=== PATIENT | male | born 1975 | race African-American/Black ===

== ENCOUNTER 2025-06-03 05:14 | Emergency (ER) | payer SELFPAY ==
[~2025-06-03] VITALS: Ht 170.2 cm; Wt 118.0 kg
--- NOTE | 2025-06-03 05:59 | DVH ---
CHEST RADIOGRAPH INDICATION: chest pain TECHNIQUE: Single frontal view of the chest was obtained COMPARISON: None FINDINGS: Lines and Tubes: None Lungs: No focal consolidation. Pleura: No effusion. No pneumothorax. Cardiomediastinal contours: Unremarkable Bones: No acute osseous abnormality. IMPRESSION: 1. No acute cardiopulmonary disease.
[2025-06-03 06:05] LABS: Hematocrit 41.9 % (41.0-53.0); Hemoglobin 14.1 g/dL (13.5-17.5); Mean Corpuscular Hemoglobin 28.4 pg (28.0-32.0); Mean Corpuscular Volume 84.4 fL (80.0-100.0); Nucleated Red Blood Cells % 0.1 %
[2025-06-03 06:19] LABS: Albumin 4.3 g/dL (3.2-4.8); Alkaline Phosphatase 87 U/L (46-116); Anion Gap 11 (5-15); BUN/Creatinine Ratio 7.8 (10.0-20.0); Bilirubin, Total 0.8 mg/dL (0.2-1.0); Blood Urea Nitrogen 10 mg/dL (9-23); Calcium 8.8 mg/dL (8.7-10.4); Carbon Dioxide 23 mmol/L (20-31); Chloride 101 mmol/L (98-107); Total Protein 6.9 g/dL (5.7-8.2)
[2025-06-03 06:20] LABS: Alanine Aminotransferase 47 U/L (7-40); Potassium 3.4 mmol/L (3.5-5.1); Sodium 135 mmol/L (136-145)
[2025-06-03 06:22] LABS: INR 1.51 (0.9-1.15); Partial Thromboplastin Time 28.3 SEC (24.5-34.5); Prothrombin Time 15.4 sec (9.3-11.8)
[2025-06-03 06:24] LABS: Glucose 432 mg/dL (74-106)
--- NOTE | 2025-06-03 07:01 | ECG ---
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
--- NOTE | 2025-06-03 07:11 | ECG ---
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
--- NOTE | 2025-06-03 07:18 | ED.PDOC ---
HPI Comments 50 yr M w/ type 2 diabetes (diagnosed in 2018), clinical depression, anxiety disorder, and sleep apnea presents for evaluation of chest pain. The chest pain began earlier while going to the bathroom and was described as a pressure and squeezing sensation in the center of the chest, similar to heartburn, and associated with recent consumption of white rice and water. The pain was initially severe enough that the patient considered calling an ambulance and was accompanied by left arm pain. The patient currently reports mild persistent chest pain rated as 2 out of 10, with mild left arm discomfort, but no current shortness of breath or abdominal pain. Earlier, the patient did experience shortness of breath. The patient has a history of similar chest pain in the past, with an ER visit in 2022 where it was attributed to the esophagus rather than the heart. The patient takes metformin 1000 mg twice daily, Jardiance 25 mg daily, and Lantus 24 units at bedtime for diabetes, but has recently missed doses. The patient also takes sertraline, diphenhydramine, and prazosin (for nightmares). Chief Complaint: Chest Pain Time Seen by MD: 06:45 Reviewed Notes: Nurses Notes, Medications, Allergies Allergies: Coded Allergies: NO KNOWN ALLERGIES (Unverified , 03/31/10) Home Meds Active Scripts Ibuprofen (Ibuprofen) 600 Mg Tab, 1 TAB PO Q8HP PRN for 14 Days, #42 TAB 0 Refills Prov:LIDYADILLON NP 06/03/25 Information Source: Patient Mode of Arrival: EMS Severity: Moderate Past Medical History PAST MEDICAL HISTORY: Anxiety, Depression, DM, High Lipids Surgical History: Denies all surgeries Family History Family History: Reviewed,noncontributory to illness, Unknown Social History Smoker: Non-Smoker Alcohol: Denies ETOH Use Drugs: Denies Drug Use Lives In: Home Constitutional: denies: chills, diaphoresis, fatigue, fever, malaise, sweats, weakness, others EENTM: denies: blurred vision, double vision, ear bleeding, ear discharge, ear drainage, ear pain, ear ringing, eye pain, eye redness, hearing loss, mouth pain, mouth swelling, nasal discharge, nose bleeding, nose congestion, nose pain, photophobia, tearing, throat pain, throat swelling, voice changes, others Respiratory: denies: cough, hemoptysis, orthopnea, SOB at rest, shortness of breath, SOB with excertion, stridor, wheezing, others Cardiovascular: reports: chest pain; denies: dizzy spells, diaphoresis, Dyspnea on exertion, edema, irregular heart beat, left arm pain, lightheadedness, palpitations, PND, syncope, others Gastrointestinal: denies: abdomen distended, abdominal pain, blood streaked bowels, constipated, diarrhea, dysphagia, difficulty swallowing, hematemesis, melena, nausea, poor appetite, poor fluid intake, rectal bleeding, rectal pain, vomiting, others Genitourinary: denies: burning, dysuria, flank pain, frequency, hematuria, incontinence, penile discharge, penile sore, pain, testicle pain, testicle swelling, urgency, others Neurological: denies: dizziness, fainting, headache, left sided numbness, left sided weakness, numbness, paresthesia, pre-existing deficit, right sided numbness, right sided weakness, seizure, speech problems, tingling, tremors, weakness, others Musculoskeletal: denies: back pain, gout, joint pain, joint swelling, muscle pain, muscle stiffness, neck pain, others Integumetry: denies: bruises, change in color, change in hair/nails, dryness, laceration, lesions, lumps, rash, wounds, others Allergic/Immunocompromised: denies: Difficulty Healing, Frequent Infections, Hives, Itching, others Hematologic/Lymphatic: denies: anemia, blood clots, easy bleeding, easy bruising, swollen glands, others Endocrine: denies: excessive hunger, excessive sweating, excessive thirst, excessive urination, flushing, intolerance to cold, intolerance to heat, unexplained weight gain, unexplained weight loss, others Psychiatric: denies: anxiety, bipolar disorder, depression, hopeless, panic disorder, schizophrenia, sleepless, suicidal, others All Other Systems: Reviewed and Negative Physical Exam Exam Comments Reproducible chest pain to palpation to the left chest wall General Appearance: No Apparent Distress, Normal HEENT: Normal ENT Inspection, Pharynx Normal, TMs Normal Neck: Full Range of Motion, Non-Tender, Normal, Normal Inspection Respiratory: Chest Non-Tender, Lungs Clear, No Accessory Muscle Use, No Respiratory Distress, Normal Breath Sounds Cardiovascular: No Edema, No JVD, No Murmur, No Gallop, Normal Peripheral Pulses, Regular Rate/Rhythm Breast Exam: Deferred Gastrointestinal: No Organomegaly, Non Tender, No Pulsatile Mass, Normal Bowel Sounds, Soft Genitalia: Deferred Pelvic: Deferred Rectal: Deferred Extremities: No calf tenderness, Normal capillary refill, Normal inspection, Normal range of motion, Non-tender, No pedal edema Musculoskeletal : Apperance: Normal Neurologic: Alert, manager purchasing II-XII nml as Tested, No Motor Deficits, Normal Affect, Normal Mood, No Sensory Deficits Cerebellar Function: Normal Reflexes: Normal Skin: Dry, Normal Color, Warm Lymphatic: No Adenopathy EKG EKG : Pulse Rate (adult): 94 [place]: Normal Cardiac Rhythm: NSR Block: None Hypertrophy: None ST: Normal Was a procedure done? Was a procedure done?: No CP Differential Dx Differential Diagnosis: Other X-Ray, Labs, Meds, VS Vital Signs Date Time Temp Pulse Resp B/P (MAP) Pulse Ox O2 Delivery O2 Flow Rate FiO2 06/03/25 09:30 97.9 79 14 110/68 (82) 96 97.9 06/03/25 09:07 78 06/03/25 08:43 97.9 06/03/25 07:35 98.1 06/03/25 07:18 94 06/03/25 07:08 70 06/03/25 07:07 84 16 98 Room Air 06/03/25 07:07 97.6 84 16 105/63 (77) 98 97.6 06/03/25 05:30 98.6 105 16 108/60 98 98.6 06/03/25 05:14 94 Lab Test 06/03/25 08:50 06/03/25 07:00 06/03/25 06:42 06/03/25 05:44 Range/Units Troponin I High Sensitivity < 3 L < 3 L < 3 L </=54 ng/L Urine Color Light-yellow Yellow Urine Clarity Clear Clear Urine pH 5.5 5.0-9.0 Urine Specific [place] 1.039 H 1.001-1.035 Urine Protein Negative Negative Urine Ketones Negative Negative Urine Blood Negative Negative /uL Urine Nitrite Negative Negative Urine Bilirubin Negative Negative Urine Urobilinogen Normal Negative mg/dL Urine Leukocyte Esterase Negative Negative /uL Urine RBC None seen 0 - 3 /hpf Urine Microscopic WBC 0-3 /HPF Urine Squamous Epithelial Cells None seen <5 /hpf Urine Bacteria None seen None Seen /hpf Urine Glucose 4+ H Normal mg/dL White Blood Count 3.1 L 4.4-10.8 10^3/uL Red Blood Count 4.96 4.5-5.90 10^6/uL Hemoglobin 14.1 13.5-17.5 g/dL Hematocrit 41.9 41.0-53.0 % Mean Corpuscular Volume 84.4 80.0-100.0 fL Mean Corpuscular Hemoglobin 28.4 28.0-32.0 pg Mean Corpuscular Hemoglobin Concent 33.6 32.0-36.0 g/dL Red Cell Distribution Width 13.0 11.8-14.3 % Platelet Count 146 140-450 10^3/uL Mean Platelet Volume 7.9 6.9-10.8 fL Neutrophils (%) (Auto) 57.4 37.0-80.0 % Lymphocytes (%) (Auto) 28.7 10.0-50.0 % Monocytes (%) (Auto) 9.7 0.0-12.0 % Eosinophils (%) (Auto) 3.2 0.0-7.0 % Basophils (%) (Auto) 1.0 0.0-2.0 % Neutrophils # (Auto) 1.8 1.6-8.6 10 ^3/uL Lymphocytes # (Auto) 0.9 0.4-5.4 10 ^3/uL Monocytes # (Auto) 0.3 0-1.3 10 ^3/uL Eosinophils # (Auto) 0.1 0-0.8 10 ^3/uL Basophils # (Auto) 0 0-0.2 10 ^3/uL Nucleated Red Blood Cells 0.1 % Prothrombin Time 15.4 H 9.3-11.8 sec Prothrombin Time INR 1.51 H 0.9-1.15 Activated Partial Thromboplast Time 28.3 24.5-34.5 SEC Sodium Level 135 L 136-145 mmol/L Potassium Level 3.4 L 3.5-5.1 mmol/L Chloride Level 101 98-107 mmol/L Carbon Dioxide Level 23 20-31 mmol/L Anion Gap 11 5-15 Blood Urea Nitrogen 10 9-23 mg/dL Creatinine 1.29 0.700-1.30 mg/dL Glomerular Filtration Rate Calc 68 >90 mL/min BUN/Creatinine Ratio 7.8 L 10.0-20.0 Serum Glucose 432 *H 74-106 mg/dL Calcium Level 8.8 8.7-10.4 mg/dL Total Bilirubin 0.8 0.2-1.0 mg/dL Aspartate Amino Transferase (AST) 61 H 13-40 U/L Alanine Aminotransferase (ALT) 47 H 7-40 U/L Alkaline Phosphatase 87 46-116 U/L Total Protein 6.9 5.7-8.2 g/dL Albumin 4.3 3.2-4.8 g/dL X-Ray, Labs, Meds, VS Comment Patient arrives alert and oriented, ABC's intact, afebrile, vital signs stable, saturating well in room air No pulmonary embolism risk factors, tachycardia, hypoxia, or tachypnea to sugge st pulmonary embolism. No chest pain, shortness of breath, nausea, vomiting or diaphoresis to suggest acute coronary syndrome. ECG shows no signs of ischemia or infarction and troponin is normal. Breath sounds are equal bilaterally, no hyperresonance, respiratory distress, tachypnea, cyanosis, pleuritic pain, and patient has a normal chest XRay making pneumothorax unlikely. Myocarditis is unlikely given the lack of fever, no recent viral illness, no reproducible positional pain, and no supportive EKG changes. There is no productive cough, chest pain, fever, shortness of breath or focal findings on lung exam or chest XRay to suggest pneumonia. The patient presented complaining of chest pain that by description was atypical of a cardiac etiology. Chest pain ap pears atypical, probable musculoskeletal given pain is reproducible with palpation and/or movement. The patient had a workup in the emergency department which included chest x-ray, labs, and EKG which demonstrated no serious or life threatening cause of the chest pain. In light of the patient's history, physical, workup, and limited risk factors for cardiac disease the patient can be safely discharged at this time. Labs were ordered and reviewed. CXR showed no signs of cardiomegaly or pericardial effusion. No recent surgery. Patient is stable for discharge at this time. External notes reviewed. Test results and diagnostic imaging interpreted. All diagnostic findings, discharge care, education and instructions provided Follow-up with PCP in 2 to 3 days Patient verbalized understanding and agreed to treatment plan Vital signs stable, afebrile, no acute distress noted Patient ambulatory with strong steady gait Advised to return precautions for any new or worsening symptoms, return to ER immediately for re-evaluation Patient is aware that the purpose of this visit was for an acute medical emergency requiring emergent stabilization. Chronic conditions, including malignancies have not been ruled out. Patient is instructed to follow up with PCP as directed and discharge instructions for continued care and workup. If unable to arrange follow-up, patient is to return to the emergency department for reassessment. Patient (parent or legal guardian if applicable) was given verbal and written discharge instructions and acknowledges understanding. Time of 1ST Reevaluation: 07:15 Reevaluation 1ST: Unchanged Patient Education/Counseling: Diagnosis, Treatment, Prognosis Family Education/Counseling: No Family Present Sepsis focused exam: focus exam completed SEPSIS Sepsis Screen Date sepsis recognized/suspect: Jun 03, 2025 Time Sepsis recognized/suspect: 529 Recent Procedure: No On Antibiotic Therapy: No Respiratory Rate >20: No Heart Rate >90: No Temp<36 C (96.8 F) or >38.3 C: No SBP <90 or MAP <65 mmHG: No New Acute Mental Status Change: No Is the patient on CPAP, BIPAP,: No Physician Orders Chest Xray 1 View (06/03/25 05:28) Vital Signs Date Time Temp Pulse Resp B/P (MAP) Pulse Ox O2 Delivery O2 Flow Rate FiO2 06/03/25 09:30 97.9 79 14 110/68 (82) 96 97.9 06/03/25 09:07 78 06/03/25 08:43 97.9 06/03/25 07:35 98.1 06/03/25 07:18 94 06/03/25 07:08 70 06/03/25 07:07 84 16 98 Room Air 06/03/25 07:07 97.6 84 16 105/63 (77) 98 97.6 06/03/25 05:30 98.6 105 16 108/60 98 98.6 06/03/25 05:14 94 Laboratory Tests Test 06/03/25 05:44 White Blood Count 3.1 10^3/uL (4.4-10.8) L Departure 1 Departure Time of Disposition: 10:23 Impression: Primary Impression: Acute pericarditis Qualified Codes: I30.0 - Acute nonspecific idiopathic pericarditis Additional Impression: Uncontrolled diabetes mellitus Qualified Codes: E11.65 - Type 2 diabetes mellitus with hyperglycemia Disposition: HOME / SELF CARE / HOMELESS Condition: Fair e-Prescriptions Ibuprofen (Ibuprofen) 600 Mg Tab 1 TAB PO Q8HP PRN for 14 Days, #42 TAB 0 Refills Prov: DILLON BOSE NP 06/03/25 Critical Care Note Critical Care Time?: No Stability Stability form required: No Heart Score Heart Score: Heart Score Response (Comments) Value History N/A 0 EKG N/A 0 Age N/A 0 Risk Factors N/A 0 Troponin N/A 0 Total 0 I personally scribed for DILLON BOSE NP ([email or web address]) on 06/03/25 at 07:18. Electronically submitted by Galen Addison ([email or web address]). DILLON BOSE NP Jun 03, 2025 07:18
[2025-06-03] MEDS: IBUPROFEN 600 MG TAB PO ONE (07:35)
[2025-06-03] MEDS: InsuLIN REG 1unit/0.01ml Soln (100units/ml) SC ONE (07:37)
[2025-06-03 08:03] LABS: Urine Protein, UAD Negative (Negative)
[2025-06-03 09:30] VITALS: BP 110/68; PULSE 79; RESP 14; TEMP 97.9; O2SAT 96
--- NOTE | 2025-06-03 10:09 | ECG ---
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
[2025-06-03] MEDS ORDERED: IBUP-1454 PO (10:25)
== END 2025-06-03 10:38 | disposition home or self-care (01) ==
LOC: ER 05:14 → EDBD 05:14 → ER 10:35
DX: I30.0 Acute nonspecific idiopathic pericarditis (principal); E11.65 Type 2 diabetes mellitus with hyperglycemia; F41.9 Anxiety disorder, unspecified; F51.5 Nightmare disorder; E78.5 Hyperlipidemia, unspecified; F32.A Depression, unspecified
CPT/HCPCS: 36415; 71045; 80053; 81001; 82947; 84484; 85025; 85610; 85730; 93005; 96372; 99285; J1815